=== PATIENT | male | born 1930 | race Caucasian/White ===

== ENCOUNTER → 2016-10-16 | Outpatient (CLI) | payer MEDICARE ==
--- NOTE | 2016-10-16 09:08 | US ---
EXAMINATION TYPE: US prostate transrectal DATE OF EXAM: 10/16/2016 COMPARISON: NONE CLINICAL HISTORY: R97.2 elevated PSA. Elevated PSA, history of prostatitis This examination was performed using the transrectal probe. EXAM MEASUREMENTS: Gland Size: 4.3 x 2.8 x 4.1cm Volume: 26.1ml Predicted PSA: 3.1 Actual PSA (if available):27.3 Heterogeneous gland without any definite lesion seen at this time, heterogeneous central zone with ca lcifications IMPRESSION: Heterogenous and prominent prostate gland with no definitive lesion. Findings may relate to underlying prostatitis. If there is clinical concern for a focal lesion MR could be performed. Predicted PSA = volume x 0.12 ng/ml Calculated Volume = 0.5236 x L x W x H
== END | disposition home or self-care (01) ==
LOC: RADUSMAIN 08:01
PROVIDERS: ATTEND Internal Medicine
DX: R97.20 Elevated prostate specific antigen [PSA] (principal)
CPT/HCPCS: 76872